=== PATIENT | male | born 1970 | race Caucasian/White ===

== ENCOUNTER 2025-04-16 09:19 | Emergency (ER) | payer OTHER ==
[~2025-04-16] VITALS: Ht 165.1 cm; Wt 71.5 kg
[2025-04-16] MEDS ORDERED: MULTIVITAMIN -ADULT INJECTION 10 ML, THIAMINE INJection 100 MG, FOLIC ACID 1 MG in NS (... IV ONE (09:40)
[2025-04-16] MEDS: THIAMINE IV ONE (10:13)
[2025-04-16] MEDS: FOLIC ACID IV ONE (10:13)
[2025-04-16] MEDS: [UNRECOGNIZED DRUG - OTHER] IV ONE (10:13)
[2025-04-16] MEDS: MULTIVITAMIN ADULT IV ONE (10:13)
[2025-04-16 10:25] LABS: BASO # 0.0 10^3/uL (0.0-0.2); BASO % 0.3 % (0.0-1.0); EOS # 0.0 10^3/uL (0.0-0.5); EOS % 0.2 % (0.0-3.0); LYMPH # 0.6 10^3/uL (1.5-5.0); LYMPH % 5.8 % (24.0-44.0); MONO # 0.3 10^3/uL (0.0-0.8); MONO % 3.2 % (2.0-8.0); NEUTROPHILS # 8.5 10^3/uL (1.5-8.5); NEUTROPHILS % 89.7 % (36.0-66.0); PLATELET COUNT, AUTOMATED 229 10^3/uL (150-450)
[2025-04-16 10:58] LABS: SALICYLATE LEVEL < 3.0 MG/DL (<30)
[2025-04-16 11:00] LABS: ETHYL ALCOHOL (ETHANOL) 0.024 % (0.000-0.010)
[2025-04-16 11:22] LABS: ALT/SGPT 40 U/L (7.0-40); AST/SGOT 44 U/L (<34); CALCIUM LEVEL 9.8 MG/DL (8.5-10.1); CARBON DIOXIDE LEVEL 20 MMOL/L (20-31); CHLORIDE LEVEL 91 MMOL/L (98-107); CREATININE FOR GFR 0.96 MG/DL (0.70-1.30); GLOMERULAR FILTRATION RATE > 90.0 (>56); POTASSIUM SERUM 4.5 MMOL/L (3.5-5.1); SODIUM LEVEL 130 MMOL/L (136-145)
[2025-04-16] MEDS ORDERED: HOME MED LIST COMPLETE! XX SCH (13:05)
[2025-04-16] MEDS ORDERED: METF750T36 PO (13:05)
[2025-04-16] MEDS ORDERED: GLIP-318 PO (13:05)
[2025-04-16] MEDS ORDERED: LISI20TA33 PO (13:05)
[2025-04-16] MEDS ORDERED: ALLO100T PO (13:05)
[2025-04-16] MEDS ORDERED: ATOR1TAB21 PO (13:05)
[2025-04-16 13:08] LABS: MAGNESIUM LEVEL 1.1 MG/DL (1.8-2.4); PHOSPHORUS LEVEL 5.4 MG/DL (2.5-4.9)
[2025-04-16 13:58] VITALS: BP 138/83; TEMP 99.8
[2025-04-16] MEDS ORDERED: MAGN400T35 PO (13:58)
[2025-04-16 14:00] VITALS: O2SAT 85
[2025-04-16] MEDS: MAGNESIUM OXIDE 400 MG TAB PO ONE (14:05)
== END 2025-04-16 14:11 | disposition home or self-care (01) ==
LOC: M ED 09:19 → EDBD 09:19 → M ED 14:11
DX: E11.649 Type 2 diabetes mellitus with hypoglycemia without coma (principal); F10.10 Alcohol abuse, uncomplicated; E87.1 Hypo-osmolality and hyponatremia; E83.42 Hypomagnesemia; Z79.4 Long term (current) use of insulin; Z79.899 Other long term (current) drug therapy; Z88.1 Allergy status to other antibiotic agents
CPT/HCPCS: 71045; 80047; 80048; 80076; 80143; 82077; 83690; 83735; 84100; 84443; 85025; 93041; 96365; 96366; 99285; J1808; J3411